=== PATIENT | female | born 1990 | race Caucasian/White ===

== ENCOUNTER 2018-10-17 00:51 | Emergency (ER) | payer MEDICAID ==
[2018-10-17 01:03] VITALS: BP 116/73
[2018-10-17] MEDS ORDERED: KETOROLAC TROMETHAMINE INJ/PF 30 MG/1 ML SDV IV ONE (01:14)
[2018-10-17] MEDS ORDERED: ACETAMINOPHEN 325 MG TABLET PO ONE (01:14)
[2018-10-17] MEDS ORDERED: METOCLOPRAMIDE HCL INJ/PF 10 MG/2 ML SDV IV ONE (01:14)
[2018-10-17] MEDS ORDERED: NORMAL SALINE 1000 ML 1,000 ML IV ONE (01:15)
[2018-10-17 01:52] LABS: HEMATOCRIT 37.9 % (36.0-47.0); HEMOGLOBIN 12.9 g/dL (12.0-15.5); MEAN CORPUSCULAR HEMOGLOBIN 29.9 pg (27.0-33.4); MEAN CORPUSCULAR VOLUME 88 fl (80-97); PLATELET COUNT 224 10^3/uL (150-450); RED CELL DISTRIBUTION WIDTH 13.5 % (11.5-14.0); WHITE BLOOD COUNT 19.8 10^3/uL (4.0-10.5)
[2018-10-17 01:56] LABS: A TYPE INFLUENZA AG NEGATIVE (NEGATIVE); B INFLUENZA AG NEGATIVE (NEGATIVE)
[2018-10-17 01:58] LABS: APPEARANCE,URINE CLOUDY; BILIRUBIN,URINE NEGATIVE (NEGATIVE); COLOR,URINE YELLOW; GLUCOSE, URINE NEGATIVE (NEGATIVE); KETONES,URINE TRACE mg/dL (NEGATIVE); LEUKOCYTE ESTERASE,URINE LARGE (NEGATIVE); NITRITE,URINE NEGATIVE (NEGATIVE); PROTEIN,URINE 30 mg/dL (NEGATIVE); URINE SPECIFIC GRAVITY 1.016
[2018-10-17 02:09] LABS: ANION GAP 10 (5-19); BLOOD UREA NITROGEN 8 mg/dL (7-20); CALCIUM 9.4 mg/dL (8.4-10.2); CARBON DIOXIDE 24 mmol/L (22-30); CHLORIDE 106 mmol/L (98-107); GLUCOSE 135 mg/dL (75-110); POTASSIUM 3.9 mmol/L (3.6-5.0); SODIUM 139.6 mmol/L (137-145)
[2018-10-17] MEDS ORDERED: CEFTRIAXONE INJ 1000 MG VIAL IV ONE (02:09)
--- NOTE | 2018-10-17 02:11 | ER Document Report ---
ED General - General Chief Complaint: Fever Stated Complaint: MIGRAINE,BODY ACHES Time Seen by Provider: 10/17/18 01:14 Notes: Patient is a 27-year-old female without chronic medical problems who presents with multiple concerns. Her first concern is a migraine type headache which she states is typical for her migraine headaches. She describes as a dull, throbbing, global headache with photophobia and phonophobia as well as associated nausea. She states that this started earlier today and has gotten progressively worse throughout the day. She has tried ibuprofen with minimal to no relief of the headache. She also notes that she has had diffuse body aches, cough without sputum production and has felt generally malaised for the past 48 hours. Her significant other at the bedside next her tested positive for flu last week and the patient believes she may have similar symptoms. They note that the child has also been sick with similar symptoms. The patient does also note that she has had urinary frequency as well as bilateral flank pain. Patient has not had any vomiting or diarrhea but has been nauseated. No vaginal bleeding or discharge. Nothing seems to worsen her symptoms. Does report a history of migraine headaches in the past but denies a history of similar constitutional symptoms in the past. Patient does report that she had a fever at home to 102.8 F. - Related Data Allergies/Adverse Reactions: No Known Allergies Allergy (Unverified 10/17/18 01:48) Past Medical History - General Information source: Patient - Social History Smoking Status: Never Smoker Frequency of alcohol use: None Drug Abuse: None Lives with: Spouse/Significant other Family History: Reviewed & Not Pertinent Patient has suicidal ideation: No Patient has homicidal ideation: No Renal/ Medical History: Denies: Hx Peritoneal Dialysis Review of Systems - Review of Systems Notes: Constitutional: Positive for fever. HENT: Negative for sore throat. Eyes: Negative for visual changes. Cardiovascular: Negative for chest pain. Respiratory: Negative for shortness of breath. Positive for cough Gastrointestinal: Negative for abdominal pain, positive for nausea Genitourinary: Positive for dysuria. Musculoskeletal: Positive for diffuse musculoskeletal pain, positive for bilateral flank pain Skin: Negative for rash. Neurological: Positive for headaches. 10 point ROS negative except as marked above and in HPI. Physical Exam - Vital signs Vitals: Temp Pulse Resp BP Pulse Ox 99.3 F 127 H 20 116/73 94 10/17/18 01:01 10/17/18 01:01 10/17/18 01:01 10/17/18 01:01 10/17/18 01:01 Interpretation: Tachycardic Notes: PHYSICAL EXAMINATION: GENERAL: Appears moderately uncomfortable but in no acute distress HEAD: Atraumatic, normocephalic. EYES: Pupils equal round and reactive to light, extraocular movements intact, sclera anicteric, conjunctiva are normal. ENT: nares patent, oropharynx clear without exudates. Moderately dry mucous membranes. NECK: Normal range of motion, bilateral anterior cervical lymphadenopathy LUNGS: Breath sounds clear to auscultation bilaterally and equal. No wheezes rales or rhonchi. HEART: Regular tachycardia without murmurs ABDOMEN: Soft, nontender, normoactive bowel sounds. No guarding, no rebound. No masses appreciated. Bilateral CVA tenderness present on exam EXTREMITIES: Normal range of motion, no pitting or edema. No cyanosis. NEUROLOGICAL: Face symmetric. Tongue protrudes midline. Extraocular motions intact. Pupils are 2 mm and equally reactive. Normal speech, normal gait. 5 out of 5 strength in both the distal and proximal upper and lower extremities bilaterally. Sensation is grossly intact throughout. Finger to nose testing n ormal. Pronator drift normal. PSYCH: Normal mood, normal affect. SKIN: Warm, Dry, normal turgor, no rashes or lesions noted. Course - Re-evaluation Re-evalutation: 10/17/18 02:11 Presentation is most consistent with acute pyelonephritis with a likely associated migraine headache. Laboratories do demonstrate a large amount of w mame blood cells in the urine as well as bacteria. Patient has had constitutional symptoms at home as well as a fever. CVA tenderness is present on exam. The remainder laboratories are relatively unremarkable without evidence of renal dysfunction. I do not suspect an acute appendicitis, biliary pathology, pancreatitis, intra-abdominal abscess, or tubo-ovarian abscess based on history and examination. Patient has been given a dose of IV ceftriaxone and a liter of fluids. Patient is able to tolerate oral intake without difficulty. In regards the patient's headache: Headache appears to be most consistent with tension versus migrainous type headache. Headache was not maximal in onset, pat ient has no focal neurologic deficits, no nuchal rigidity, vital signs within normal limits, no papilledema, and patient is overall well in appearance. Based on clinical history and examination I do not suspect an acute subarachnoid hemorrhage, dural venous sinus thrombosis, acute meningitis, or intercranial mass. Given my low clinical suspicion for any acute life-threatening etiology, I do not feel advanced neuro imaging is indicated. Patient's headache is been treated with metoclopramide. For treatment of the patient's pyonephritis she will be discharged home on a 7 day course of cephalexin. A urine culture has been sent. Flu test is negative. Her heart rate has improved at time of reassessment prior to discharge down to 82. At this time will discharge with return precautions and follow-up recommendations. Verbal discharge instructions given a the bedside and opportunity for questions given. Medication warnings reviewed. Patient is in agreement with this plan and has verbalized understanding of return precautions and the need for primary care follow-up in the next 24-72 hours. - Vital Signs Vital signs: Temp Pulse Resp BP Pulse Ox 99.3 F 127 H 20 116/73 94 10/17/18 01:01 10/17/18 01:01 10/17/18 01:01 10/17/18 01:01 10/17/18 01:01 - Laboratory Result Diagrams: 10/17/18 01:44 10/17/18 01:44 Laboratory results interpreted by me: 10/17/18 10/17/18 10/17/18 01:30 01:44 01:44 WBC 19.8 H Glucose 135 H Urine Protein 30 H Urine Ketones TRACE H Urine Blood MODERATE H Urine Urobilinogen 2.0 H Ur Leukocyte Esterase LARGE H Discharge - Discharge Clinical Impression: Pyelonephritis, Cough Fever Qualifiers: Fever type: unspecified Qualified Code(s): R50.9 - Fever, unspecified Migraine headache Qualifiers: Migraine type: unspecified Status migrainosus presence: with status migrainosus Intractability: not intractable Qualified Code(s): G43.901 - Migraine, unspecified, not intractable, with status migrainosus Condition: Good Disposition: HOME, SELF-CARE Additional Instructions: You have been diagnosed with a condition called pyelonephritis which is an infection involving your kidneys and bladder. You have been given a dose of antibiotics here in the emergency department to help begin to treat this infection. Your also being sent home on antibiotics. Please start taking these later on today when you fill the prescription. Complete the course even if you feel better. Please return if you have persistent vomiting, pass out, have worsening pain, become unable to tolerate fluids, or have any other symptoms that are concerning to you. Please follow-up with your primary care physician in the next 24-48 hours. You have been seen in the Emergency Department (ED) for a headache. Please use Tylenol (acetaminophen) or Motrin (ibuprofen) as needed for symptoms, but only as written on the box. As we have discussed, please follow up with your primary care doctor as soon as possible regarding today's ED visit and your headache symptoms. Call your doctor or return to the ED if you have a worsening headache, sudden and severe headache, confusion, slurred speech, facial droop, weakness or numbness in any arm or leg, extreme fatigue, or other symptoms that concern you. Prescriptions: Cephalexin Monohydrate [Keflex 500 mg Capsule] 500 mg PO Q6H 7 Days capsule Referrals: CRISTIANO HENDERSON MD [Primary Care Provider] - Follow up in 3-5 days
== END 2018-10-17 03:00 | disposition home or self-care (01) ==
LOC: ER 00:51
DX: N12 Tubulo-interstitial nephritis, not specified as acute or chronic (principal); G43.901 Migraine, unspecified, not intractable, with status migrainosus; R50.9 Fever, unspecified; M79.10 Myalgia, unspecified site
CPT/HCPCS: 99283; 96361; 96375; 96365; 36415; 87086; 84703; 85027; 87088; 80048; 81001; 87186; 87804; J3490; J1885; J2765; J0696; J7030

== ENCOUNTER 2019-02-14 19:44 | Emergency (ER) | payer MEDICAID ==
[2019-02-14 20:23] VITALS: BP 115/80
== END 2019-02-14 21:30 | disposition left against medical advice (07) ==
LOC: ER 19:44
DX: Z53.21 Procedure and treatment not carried out due to patient leaving prior to being seen by health care provider (principal)